=== PATIENT | female | born 1940 | race Caucasian/White ===

== ENCOUNTER 2016-12-02 19:26 | Observation (INO) | payer MEDICARE, BC ==
[2016-12-02 20:14] LABS: Hematocrit 34 % (35-47); Hemoglobin 11.4 g/dl (12.0-16.0); Mean Corpuscular HGB Conc 34 g/dl (31-36); Mean Corpuscular Hemoglobin 32 pg (27-31); Mean Corpuscular Volume 92 fL (80-97); Mean Platelet Volume 8 um3 (7.4-10.4); Red Blood Count 3.62 10^6/ul (4.0-5.4); Red Cell Distribution Width 13 % (10.5-15); White Blood Count 5.3 10^3/ul (3.5-10.8)
--- NOTE | 2016-12-02 20:27 | RAD ---
Indication: Chest pain. Single frontal view of the chest performed at 2010 hours was reviewed. No prior study is available for comparison.. No mediastinal shift is noted. Heart is of normal size and configuration. Lung ordonez appear clear. IMPRESSION: NO ACTIVE CARDIOPULMONARY DISEASE IS NOTED.
[2016-12-02 20:29] LABS: Albumin 4.1 g/dL (3.2-5.2); BUN/Creatinine Ratio 16.2 (8-20); Calcium 9.4 mg/dL (8.6-10.3); EGFR African American 108.5 (>60); EGFR Non-African American 84.4 (>60); Globulin 2.9 g/dL (2-4); Total Bilirubin 1.3 mg/dL (0.2-1.0)
[2016-12-02 20:32] LABS: Troponin I 0.01 ng/mL (<0.04)
[2016-12-02] MEDS ORDERED: Iohexol 350* (CONTRAST) 500 ML MDV IV ONE (21:06)
--- NOTE | 2016-12-02 22:30 | RAD ---
Indication: Chest pain. CTA of the chest was performed after IV contrast administration. Administered 66.0 ml of OMNIPAQUE 350 mgi/ml. Coronal and sagittal reconstructed images were obtained. The pulmonary arterial tree is well opacified. No filling defects are noted to suggest pulmonary embolus. Interstitial edema consistent with vascular congestion is noted. No alveolar consolidation is noted. The lung ordonez demonstrate no evidence of alveolar consolidation. No pneumothorax is noted. No pleural fluid is identified. No mediastinal or hilar adenopathy is noted. Cardiomegaly without evidence of pericardial effusion is present. The bony structures are unremarkable. IMPRESSION: No evidence of pulmonary embolus is noted. Prominent interstitial markings with no pericardial effusion is noted. There is cardiomegaly noted. The possibility of CHF should BE considered.
[2016-12-03] MEDS ORDERED: Heparin VIAL(*) 5000 UNITS/ML VIAL (FIVE THOUSAND) SUBCUT SCH (06:00)
[2016-12-03] MEDS ORDERED: Levothyroxine TAB* 75 MCG TAB PO SCH (06:00)
[2016-12-03 06:31] LABS: HDL Cholesterol 52.9 mg/dL
--- NOTE | 2016-12-03 08:28 | HP ---
HISTORY AND PHYSICAL: DATE OF ADMISSION: 12/03/16 CHIEF COMPLAINT: Abdominal pain/chest pain. HISTORY OF PRESENT ILLNESS: The patient is a 76-year-old woman who said that she started feeling pain into her left breast. It seemed to throb. Then it would subside and it came back. She tried to relax, but it did not go away. It came on without exertion. It did not radiate anywhere. At its worse it was 5/10 in severity. It came and went all day and she finally came to the ER. She can barely feel it now. She had no nausea or vomiting. No shortness of breath , no palpitations, no clamminess, no sweating. PAST MEDICAL HISTORY: She has a past medical history significant for hypothyroidism, hypertension, hyperlipidemia, three C-sections, varicose vein stripping, and hernia repair. ALLERGIES: She has no known drug allergies. CURRENT MEDICATIONS: Are as follows: 1. Metoprolol succinate 50 mg at bedtime. 2. Valsartan 60 mg daily. 3. Levothyroxine 75 mcg daily. 4. Lipitor 10 mg at bedtime. 5. Aspirin 81 mg daily. FAMILY HISTORY: Mother at 90 of heart problems. Father at 74 of unknown cause. SOCIAL HISTORY: No tobacco, no alcohol, no recreational drug use. She is retired. She is . Her son, Frandy Mckenzie, is her healthcare proxy and her son, Sebas Mckenzie, is also her healthcare proxy. She has three sons. REVIEW OF SYSTEMS: A 14-point review of systems is completed with the patient. All pertinent positives and negatives are in the history of present illness, otherwise it is negative. PHYSICAL EXAMINATION GENERAL: A pleasant woman lying in bed, in no acute distress. VITAL SIGNS: Blood pressure 121/80, pulse ox 95%, heart rate [60] beats per minute, respiratory rate [75] breaths per minute, temperature 98.1 degrees. HEENT: Normocephalic and atraumatic. Pupils are equal, round and reactive to light. Moist mucous membranes. NECK: Supple. No JVD, bruits, palpable thyroid or lymphadenopathy. CHEST: Clear to auscultation and percussion bilaterally. CARDIOVASCULAR: S1, S2 appreciated. Regular rate and rhythm. ABDOMEN: Positive bowel sounds in all 4 quadrants. Soft, nontender, and nondistended. EXTREMITIES: No cyanosis, clubbing, or edema. +2 peripheral pulses bilaterally. NEUROLOGIC: Alert and oriented x3. Moves all extremities. SKIN: No rashes or abnormalities. LABORATORY DATA: White count 5.3, hemoglobin 10.4, hematocrit 34, platelets 207. Sodium 133, potassium 4.0, chloride 100, CO2 26, BUN 11, creatinine 0.68, glucose 123. BNP 283. INR 0.99. CTA of the chest shows no evidence of pulmonary embolism noted, prominent interstitial markings with no pericardial effusion noted. There is cardiomegaly noted, possibly CHF should be considered. Chest x-ray was interpreted by Radiology as no acute cardiopulmonary disease as noted. EKG shows normal sinus rhythm at 74 beats per minute. Normal axis. No acute ST -T wave changes. ASSESSMENT AND PLAN: 1. Chest pain. I think it is unlikely cardiac, but certainly should be ruled out and get a stress in the a.m. If negative, I think she can safely go home and follow up with her PCP. We will also check a lipid profile. We will cycle her troponins obviously before that. She will be placed on telemetry. 2. Hypertension. Borderline, controlled. Continue current measurement and adjust medications accordingly. 4. Hypothyroidism. Stable. Continue Synthroid. 5. Hyperlipidemia. Check lipid profile. Continue Lipitor. 6. FEN. N.p.o. after midnight. 7. DVT prophylaxis. Heparin subcu. 8. The patient is a full code. TIME SPENT: Over 80 minutes were spent on this H and P, more than 45 minutes of which were spent in direct [id number]-lyci contact with the patient and evaluation, physical exam, counseling, and coordination of care. CC: Hung Terry MD.* [id number]/[facility] #: [id number] SILVANO
[2016-12-03] MEDS ORDERED: Regadenoson* 0.4 MG/5 ML SYRINGE ONE (08:37)
[2016-12-03] MEDS ORDERED: Aspirin Low Dose CHEW TAB* 81 MG PO SCH (09:00)
[2016-12-03] MEDS ORDERED: Valsartan TAB* 160 MG PO SCH (09:00)
--- NOTE | 2016-12-03 11:18 | RAD ---
Edited for charges. INDICATION: Chest pain. COMPARISON: There are no prior studies available for comparison. Technique: A single day myocardial perfusion stress study was performed. Initially the resting study was performed. The patient was given an intravenous injection of 10.1 mCi of technetium 99m tetrofosmin and and the heart was imaged in multiple projections. The patient returned later in the day and under the direction of Dr. Roth, the patient was given intervenous injection of Lexiscan. Subsequently the patient was given intravenous injection of 25.5 mCi of technetium 99m tetrofosmin and the heart was imaged in multiple projections. Images were reconstructed in the axial, sagittal and coronal planes and in a 3- D format. FINDINGS: There appears to be normal wall motion and myocardial thickening. The left ventricular ejection fraction was calculated to be 77%. Review of the images demonstrates a small area of decreased activity in the anterior wall towards the base of the heart on the post pharmacologic stress images which appears normal on the resting set of images suggestive of a small area of ischemia. There is otherwise normal distribution of radiopharmacutical. IMPRESSION: FINDINGS SUGGESTIVE OF A SMALL AREA OF ISCHEMIA IN THE ANTERIOR WALL. ASSESSMENT: Low risk Based on imaging criteria from ACC/AHA 2002 Guideline Update for the Management of Patients With Chronic Stable Angina Table 23. Noninvasive Risk Stratification. MTDD
[2016-12-03 11:21] VITALS: BP 157/95
--- NOTE | 2016-12-03 12:20 | DCNOTE ---
Patient feels well. States she had pain all day yesterday until coming to the floor and none since then. None during stress test. On exam, RRR, s1 and s2 present, no m/g/r, lungs clear B/L, abd soft, NTND, BS+ no LE edema Stress test low risk. Will plan to discharge home today with no medication changes.
[2016-12-03] MEDS ORDERED: Metoprolol Succinate XL TAB* 50 MG PO SCH (21:00)
[2016-12-03] MEDS ORDERED: Atorvastatin* 10 MG TAB PO SCH (21:00)
--- NOTE | 2016-12-04 | DS ---
CC: Dr. Terry; Roberta Garcia MD DISCHARGE SUMMARY: DATE OF ADMISSION: 12/03/16 DATE OF DISCHARGE: 12/03/16 PRIMARY CARE PHYSICIAN: Dr. Terry. PRINCIPAL DISCHARGE DIAGNOSIS: Chest pain. SECONDARY DIAGNOSES: 1. Hypertension. 2. Hypothyroidism. 3. Hyperlipidemia. STUDIES DONE DURING HOSPITALIZATION: 1. Chest x-ray, impression: No active cardiopulmonary disease is noted. 2. CTA of the chest, impression: No evidence of pulmonary embolism is noted. Prominent interstitia l markings with no pericardial effusion is noted. There is cardiomegaly noted. The possibility of CHF should be considered. 3. Nuclear cardiac stress test, impression: Findings suggestive of a small area of ischemia in the anterior wall. Assessment: Low risk. DISCHARGE MEDICATION REGIMEN: 1. Atorvastatin 10 mg by mouth at bedtime. 2. Synthroid 75 mcg by mouth daily. 3. Valsartan 160 mg by mouth daily. 4. Metoprolol succinate 50 mg by mouth at bedtime. 5. Aspirin 81 mg by mouth daily. HISTORY OF PRESENT ILLNESS AND HOSPITAL SUMMARY: Please see the full history and physical dictated by Dr. Esdras Medina for full details. Briefly, Ms. Mckenzie is a 76-year-old female with a past medi palomo history as above who presented to the hospital with some upper abdominal, midsternal chest pain that was also present in the left breast. Pain was present for most of the day yesterday until she finally decided to come to the emergency room. She states that shortly after coming to the hospital prior to getting up to her floor, the pain resolved and has not come back since. The patient under went a stress test earlier this morning with results as above. She had no chest pain noted at all d uring the stress test. Her troponins remained negative and no events on telemetry. It was felt raghu t despite the mild abnormality of the patient's nuclear stress test, it was unlikely that this was c ardiac in nature. If she had been having ongoing chest pain that was cardiac for the majority of day yesterday, I would have expected to see an elevation of her troponin or some recurrence of the chest pain during the stress test. The patient will be discharged home with no change in her home medications. She will follow up with her PCP and with Dr. Garcia as an outpatient. TIME SPENT: Total time spent on this discharge, 35 minutes. This is a summary of the hospitalizati on. Please see the full medical record for further details. [id number]/[facility] #: [id number]
--- NOTE | 2016-12-04 06:50 | ED ---
Yluisa Conrad Janilya, scribed for Minh Monson MD on 12/02/16 at 2018 . HPI Chest Pain - HPI Summary HPI Summary: A 76 y/o female came in to [facility] presenting w/ intermittent CP starting today at 0900. Severity is rated 5/10. Character of pain is described as dull pressure and it does not radiate. Deep breaths aggravate the pain and rest alleviates the pain. Pt denies SOB, abd pain, dysuria, hematuira, edema in legs , rash, nausea, and recent trauma to area. - History of Current Complaint Chief Complaint: EDChestWallPain Time Seen by Provider: 12/02/16 19:48 Hx Obtained From: Patient Onset/Duration: Started Hours Ago, Still Present Timing: Intermittent, Lasting Hours Initial Severity: Moderate Current Severity: Moderate Pain Intensity: 5 Pain Scale Used: 0-10 Numeric Chest Pain Location: Diffuse Chest Pain Radiates: No Character: Dull/Aching, Pressure/Squeezing Aggravating Factor(s): Deep Breaths Alleviating Factor(s): Rest Associated Signs and Symptoms: Positive: Chest Pain. Negative: Shortness of Breath, Nausea, Calf Pain/Swelling, Edema - Allergy/Home Medications Allergies/Adverse Reactions: Allergies Allergy/AdvReac Type Severity Reaction Status Date / Time Cephalexin [From Keflex] Allergy Swelling Verified 12/02/16 20:24 Of Face,Lips,& Throat PMH/Surg Hx/FS Hx/Imm Hx Cardiovascular History: Reports: Other Cardiovascular Problems/Disorders - high cholesterol levels - Cancer History Hx Chemotherapy: No Hx Radiation Therapy: No - Surgical History Surgery Procedure, Year, and Place: , vein strip Infectious Disease History: No Infectious Disease History: Denies: Traveled Outside the [place] in Last 30 Days - Family History Known Family History: Positive: Cardiac Disease - mother - Social History Hx Substance Use: No Hx Tobacco Use: No Review of Systems Positive: Chest Pain Negative: Shortness Of Breath Negative: Abdominal Pain, Nausea Negative: dysuria, hematuria Negative: Edema Negative: Rash, Bruising - pt denies any recent trauma to area All Other Systems Reviewed And Are Negative: Yes Physical Exam - Summary Physical Exam Summary: GENERAL EXAM GENERAL: Awake, alert, oriented, no acute distress, very pleasant HEENT: Head is normocephalipolc, atraumatic, anicteric sclera, clear conjunctiva , mucous membranes moist, no erythema, no discharge, no lesions, neck is supple , trachea is midline, no JVD CARDIAC: Regular rate and rhythm, S1, S2, no rub, no murmur, no gallop, 2+ radial and pedal pulses bilaterally RESPIRATORY: Clear to auscultation bilaterally with no rales, rhonchi, or wheezes, non-tender ABDOMEN: Bowel sounds positive, no bruit, soft, non-tender, no CVA tenderness EXTREMITIES: No edema, warm, dry, moving all extremities in a grossly normal manner NEUROLOGICAL: Mood is appropriate, moving all extremities in a grossly normal manner Triage Information Reviewed: Yes Vital Signs On Initial Exam: Initial Vitals Temp Pulse Resp BP Pulse Ox 98.1 F 76 18 145/83 99 12/02/16 19:35 12/02/16 19:35 12/02/16 19:35 12/02/16 19:35 12/02/16 19:35 Vital Signs Reviewed: Yes Diagnostics - Vital Signs Vital Signs Temp Pulse Resp BP Pulse Ox 12/02/16 19:35 98.1 F 76 18 145/83 99 - Laboratory Result Diagrams: 12/02/16 20:00 12/02/16 20:00 Lab Statement: Any lab studies that have been ordered have been reviewed, and results considered in the medical decision making process. - Radiology CXR Xray Interpretation: No Acute Changes Radiology Interpretation Completed By: Radiologist - IMPRESSION: No active cardiopulmonary disease is noted. - CT Chest CTA CT Interpretation: No Acute Changes CT Interpretation Completed By: Radiologist - IMPRESSION: No evidence of pulmonary embolus is noted. Prominent interstitial markings with no pericardial effusion is noted. There is cardiomegaly noted. The possibility of CHF should BE considered. Chest Pain Course/Dx - Diagnoses Provider Diagnoses: Chest pain - Provider Notifications Discussed Care Of Patient With: Dr. Medina (hospitalist) at 2315: agreed to admit pt. Discharge - Discharge Plan Condition: Stable Disposition: ADMITTED TO [facility] Referrals: Hung Terry MD [Primary Care Provider] - The documentation as recorded by the Yulisa holcomb Janilya accurately reflects the service I personally performed and the decisions made by , Minh Monson MD.
== END 2016-12-03 14:17 | disposition home or self-care (01) ==
LOC: ED 19:26 → MEDTELE 12-03 03:02
PROVIDERS: ADMIT Internal Medicine; ATTEND Hospitalist
DX: R07.9 Chest pain, unspecified (principal); I10 Essential (primary) hypertension; E03.9 Hypothyroidism, unspecified; E78.5 Hyperlipidemia, unspecified; Z79.899 Other long term (current) drug therapy; Z79.82 Long term (current) use of aspirin; Z88.1 Allergy status to other antibiotic agents; I51.7 Cardiomegaly
CPT/HCPCS: 36415; 71010; 71275; 78452; 80053; 80061; 82550; 82553; 83605; 83874; 83880; 84484; 85025; 85610; 85730; 93005; 93017; 96372; 99285; A9270-GY; A9502; G0378; J1644; J2785; Q9967

== ENCOUNTER → 2018-11-09 10:13 | Day surgery (SDC) | payer MEDICARE, BC ==
[~2018-11-09 10:13] MED LIST: Buffered Lidocaine 0.9% SYRIN* 5 ML/SYR SYRINGE INTRADERM ONE; Lactated Ringers 1000 ML Bag* 1,000 ML IV SCH; Lidocaine 2% PF * 5 ML VIAL ONE; Morphine VIAL* 10 MG/ML 1 ML VIAL ONE; Naloxone* 0.4 MG/ML 1 ML VIAL IV PRN; Propofol* 10 MG/ML 20 ML BTL ONE
[2018-11-09 14:16] VITALS: BP 145/85
--- NOTE | 2018-11-09 23:23 | PRO ---
CC: Dr. Hung Terry; Dr. Babar Armando* EGD AND COLONOSCOPY REPORT: DATE OF PROCEDURE: 11/09/18 PRIMARY CARE PHYSICIAN: Dr. Hung Terry. INDICATION FOR PROCEDURE: Iron deficiency anemia. PROCEDURE PERFORMED: Complete colonoscopy to the terminal ileum with biopsy polypectomy and esophagogastroduodenoscopy with biopsies. MEDICATIONS GIVEN: Please see Anesthesia record. DESCRIPTION OF PROCEDURE: After the EGD and colonoscopy procedures including the risks, benefits, and alternatives of the risks, not limited to perforation, surgery, missed lesions and/or were explained to the patient, written informed consent was obtained. IV medication was given by the anesthesia service and a bite block was placed between the teeth. The adult Olympus gastroscope was inserted into the patient's oropharynx into the tubular esophagus. At the distal esophagus, she had LA-C erosive esophagitis with an ulceration. This area was quite friable and did have a scant amount of bleeding upon contact with the scope. The scope was then advanced through the lower esophageal sphincter into the stomach. She had linear erosions along the body of the stomach. I did take biopsies and biopsy for CLOtesting as well. On retroflexion, the views were grossly normal. The scope was then advanced through the widely patent pylorus into the duodenal bulb into the C-loop and distal duodenum. These were normal in appearance, but given her anemia, these were biopsied to rule out celiac disease. The scope was then returned to the esophagus. The area in question had ceased bleeding at this point. The ulceration was re-looked at and was 0.5 cm in size at the GE junction. The GE junction was at 40 cm. The scope was then removed from the patient. She tolerated the procedure well. She was given additional IV medicine by the anesthesia service and rotated. A rectal exam was then performed. The rectal exam was unremarkable. The adult Olympus colonoscope was inserted into the patient's rectum and advanced very very carefully through the entirety of the colon into the cecal base. The cecal base was normal in appearance. The terminal ileal valve was identified and then intubated x4 to 5 cm and normal. Over the next 10 minutes, the scope was carefully withdrawn inspecting the mucosa. She had severe diverticulosis coli throughout the colon with a grade of concentration on the left, but did have vazquez-diverticulosis in nature. In addition, a small sigmoid colon polyp of 0.4 cm removed with biopsy polypectomy in entirety and returned to the rectum. Direct views were normal. On retroflexion, grade 1 internal hemorrhoids were appreciated. The scope was then withdrawn from the patient. She tolerated the procedure well. She returned to the recovery room in stable condition. IMPRESSION: 1. Complete esophagogastroduodenoscopy with biopsies. 2. LA-C erosive esophagitis with ulcer. 3. Gastritis. 4. Normal-appearing duodenum, biopsy for celiac. 5. Sigmoid colon polyp, diminutive; removed with biopsy polypectomy. 6. Severe diverticulosis coli, left greater than right side. 7. Grade 1 internal hemorrhoids. RECOMMENDATIONS: At this time, I suspect that her upper GI symptomatology may be enough to explain her anemia. There was some scant old dried blood in the stomach as well. This is likely from the LA-C erosive esophagitis with ulceration. I want to place her on b.i.d. proton pump inhibitor therapy for 3 months' time to heal this up. At that time, I would like to repeat an upper endoscopy along with iron studies and blood counts at that time to see if we are making progress. If there is still a question of iron deficiency at that point, we will recommend capsule endoscopy. In terms of her colon polyp, I will follow up on the results of this pathology. Would recommend repeat colonoscopy in 5 years and again a repeat EGD in 3 months' time after being on b.i.d. proton pump inhibitor therapy to evaluate for healing of the esophagitis. [id number]/[facility] #: [id number] SILVANO
== END | disposition home or self-care (01) ==
LOC: OR 10:13
PROVIDERS: ATTEND Internal Medicine Gastroenterology
DX: D50.9 Iron deficiency anemia, unspecified (principal); D12.5 Benign neoplasm of sigmoid colon; K29.50 Unspecified chronic gastritis without bleeding; I08.0 Rheumatic disorders of both mitral and aortic valves; I71.2 Thoracic aortic aneurysm, without rupture; E87.1 Hypo-osmolality and hyponatremia; I10 Essential (primary) hypertension; E03.9 Hypothyroidism, unspecified
CPT/HCPCS: 88305; 88342; J2270; J2704

== ENCOUNTER → 2019-03-02 07:26 | Day surgery (SDC) | payer MEDICARE, BC ==
[~2019-03-02 07:26] MED LIST changes: -Buffered Lidocaine 0.9% SYRIN* 5 ML/SYR SYRINGE INTRADERM ONE; +Buffered Lidocaine 1% SYRIN* 1 ML/SYRINGE INTRADERM ONE; +Famotidine IV* 10 MG/ML 2 ML (20 mg) IV ONE; +Famotidine IV* 10 MG/ML 2 ML (20 mg) ONE; +Midazolam* 1 MG/ML 5 ML VIAL (5 MG) ONE; -Morphine VIAL* 10 MG/ML 1 ML VIAL ONE; +Ondansetron INJ* 2 MG/ML VIAL ONE; +fentaNYL* 50 MCG/ML 2 ML VIAL (100 MCG VIAL) ONE
[2019-03-02 10:09] VITALS: BP 149/89
--- NOTE | 2019-03-03 00:22 | PRO ---
CC: Dr. Babar Armando; Dr. Hung Terry * ESOPHAGOGASTRODUODENOSCOPY REPORT: DATE OF PROCEDURE: 03/02/19 - [facility] PRIMARY CARE PHYSICIAN: Dr. Hung Terry. INDICATION FOR PROCEDURE: Erosive esophagitis. PROCEDURE PERFORMED: Complete esophagogastroduodenoscopy with biopsies. MEDICATIONS GIVEN: Please see anesthesia record. DESCRIPTION OF PROCEDURE: After the EGD procedure including the risks, benefits , and alternatives, with the risks not limited to perforation, surgery, missed lesions, and/or were explained to the patient, written informed consent was obtained. IV medication was given and a bite block was placed between the teeth. The adult Olympus gastroscope was then inserted into the patient's oropharynx, into the tubular esophagus. 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 The previous extensive erosive esophagitis had healed nicely. The scope was advanced through lower esophageal sphincter. On retroflexion, a 2 cm hiatal hernia was appreciated. The scope was then moved to the antrum and body of the stomach, which was with just mild antral gastritis. The scope was then advanced through the widely patent pylorus into the duodenal bulb, C-loop, and distal duodenum; these were normal in appearance. The scope was then removed from the patient. She tolerated the procedure well. She returned to the recovery room in stable condition. IMPRESSION: 1. Complete esophagogastroduodenoscopy with biopsies. 2. Healed erosive esophagitis. 3. 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 4. 2 cm sliding hiatal hernia. 5. Mild gastritis. RECOMMENDATIONS: Repeat EGD in 3 years' time. In addition, her blood counts had stayed relatively stagnant after the previous upper and lower endoscopy; however, she had only been on PPI therapy for a brief period of time. The thought was maybe the erosive esophagitis had contributed to some of her anemia. She has a followup appointment and blood work with Dr. Armando in March 2019. If she has ongoing anemia, we will consider doing a capsule endoscopy at that time. If her blood counts are further improving, then we would recommend holding. We will touch base with Dr. Armando at that point and consider capsule endoscopy pending blood work. She should continue 20 mg of p.o. omeprazole for her Ambriz's and will plan repeat EGD in 3 years. [id number]/[facility] #: [id number] MTDD
== END | disposition home or self-care (01) ==
LOC: OR 07:26
PROVIDERS: ATTEND Internal Medicine Gastroenterology
DX: K22.70 Barrett's esophagus without dysplasia (principal); K44.9 Diaphragmatic hernia without obstruction or gangrene; K29.70 Gastritis, unspecified, without bleeding
CPT/HCPCS: 88305; J2250; J2405; J2704; J3010

== ENCOUNTER 2019-12-25 17:04 | Emergency (ER) | payer MEDICARE, BC ==
--- NOTE | 2019-12-25 19:24 | ED ---
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 She woke up Jack morning 12/21/2019 with a bleed originating from her left leg which has since resolved. Patient denies fever, pain, or SOB. SHx of varicose vein surgery and laser surgery on left leg. No SocHx of smoking or alcohol. The patient rates the pain 0/10 in severity. Symptoms aggravated by nothing. Symptoms alleviated by nothing. - History of Current Complaint Chief Complaint: EDExtremityLower Stated Complaint: VASCULAR ISSUE PER PT Time Seen by Provider: 12/25/19 19:03 Hx Obtained From: Patient Onset/Duration: Still Present - the vascular problems are ongoing but the bleeding has resolved Pain Intensity: 0 Pain Scale Used: 0-10 Numeric Aggravating Factor(s): Nothing Alleviating Factor(s): Nothing - Allergies/Home Medications Allergies/Adverse Reactions: Allergies Allergy/AdvReac Type Severity Reaction Status Date / Time fentanyl Allergy Unknown Verified 12/25/19 19:31 Reaction Details latex Allergy Rash And Verified 12/25/19 19:31 Itching lisinopril Allergy Unknown Verified 12/25/19 19:31 Reaction Details midazolam [From Versed] Allergy Unknown Verified 12/25/19 19:31 Reaction Details MS Cephalexin [From Keflex] Allergy Swelling Verified 12/25/19 19:31 Of Face,Lips,& Throat PMH/Surg Hx/FS Hx/Imm Hx Endocrine/Hematology History: Reports: Hx Thyroid Disease - Hypo, Hx Anemia - HAVING EGD AND COLONSCOPY Denies: Hx Diabetes Cardiovascular History: Reports: Hx Angina, Hx Hypercholesterolemia, Hx Hypertension, Other Cardiovascular Problems/Disorders - high cholesterol levels Denies: Hx Coronary Artery Disease, Hx Myocardial Infarction, Hx Valvular Heart Disease Respiratory History: Denies: Hx Asthma Sensory History: Reports: Hx Contacts or Glasses - GLASSES Denies: Hx Hearing Aid Opthamlomology History: Reports: Hx Contacts or Glasses - GLASSES - Cancer History Hx Chemotherapy: No Hx Radiation Therapy: No - Surgical History Surgery Procedure, Year, and Place: , vein strip Hx Anesthesia Reactions: No - Immunization History Immunizations Up to Date: Yes Infectious Disease History: No Infectious Disease History: Denies: Traveled Outside the [place] in Last 30 Days - Family History Known Family History: Positive: Cardiac Disease - mother - Social History Alcohol Use: Rare Hx Substance Use: No Substance Use Type: Reports: None Hx Tobacco Use: No Smoking Status (MU): Never Smoked Tobacco Have You Smoked in the Last Year: No Review of Systems Constitutional: Negative - negative - pain Negative: Fever Cardiovascular: Other - vascular problems Negative: Shortness Of Breath Positive: Other - bleeding from left leg on 12/21/2019 that has since resolved All Other Systems Reviewed And Are Negative: Yes Physical Exam - Summary Physical Exam Summary: VITAL SIGNS: Reviewed. GENERAL: Patient is a well-developed and nourished female who is lying comfortable in the stretcher. Patient is not in any acute respiratory distress. HEAD AND FACE: No signs of trauma. No ecchymosis, hematomas or skull depressions. No sinus tenderness. EYES: PERRLA, EOMI x 2, No injected conjunctiva, no nystagmus. EARS: Hearing grossly intact. Ear canals and tympanic membranes are within normal limits. MOUTH: Oropharynx within normal limits. NECK: Supple, trachea is midline, no adenopathy, no JVD, no carotid bruit, no c- spine tenderness, neck with full ROM. CHEST: Symmetric, no tenderness at palpation. LUNGS: Clear to auscultation bilaterally. No wheezing or crackles. CVS: Regular rate and rhythm, S1 and S2 present, no murmurs or gallops appreciated. ABDOMEN: Soft, non-tender. No signs of distention. No rebound, no guarding, and no masses palpated. Bowel sounds are normal. EXTREMITIES: left calf erythema, induration of the skin but no tenderness, Mary 's sign negative NEURO: Alert and oriented x 3. No acute neurological deficits. Speech is normal and follows commands. SKIN: Dry and warm. Triage Information Reviewed: Yes Vital Signs On Initial Exam: Initial Vitals Temp Pulse Resp BP Pulse Ox 97.1 F 84 18 152/99 96 12/25/19 17:08 12/25/19 17:08 12/25/19 17:08 12/25/19 17:08 12/25/19 17:08 Vital Signs Reviewed: Yes Procedures - Sedation Patient Received Moderate/Deep Sedation with Procedure: No Diagnostics - Vital Signs Vital Signs Temp Pulse Resp BP Pulse Ox 12/25/19 18:27 97.3 F 65 18 132/90 100 12/25/19 17:08 97.1 F 84 18 152/99 96 - Laboratory Result Diagrams: 12/25/19 19:26 12/25/19 19:26 Lab Statement: Any lab studies that have been ordered have been reviewed, and results considered in the medical decision making process. - Ultrasound Venous Doppler Study Ultrasound Interpretation Completed By: Radiologist Summary of Ultrasound Findings: IMPRESSION: 1. No evidence of deep venous thrombosis. 2. Nonocclusive thrombus in a superficial tortuous vein. has reviewed this report. 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 She woke up Tuesday morning 12/21/2019 with a bleed originating from her left leg which has since resolved. Patient denies fever, pain, or SOB. SHx of varicose vein surgery and laser surgery on left leg. No SocHx of smoking or alcohol. The patient rates the pain 0/10 in severity. Symptoms aggravated by nothing. Symptoms alleviated by nothing. Left lower extremity ultrasound impression: No evidence of DVT. Blood work without any significant abnormality except for sodium level of 130, chloride 97, glucose 111, BUN/Creatinine Ratio 23, RBC 3.27, Hgb, 10.9, Hct 31, MCH 33, and MPV 6.9. Therefore there is no evidence for infection. PE findings : left calf erythema, induration of the skin but no tenderness, Mary's sign negative. The patient will be discharged home with follow-up with and Dr. Terry. Patient is hemodynamically stable alert oriented 3. - Diagnoses Provider Diagnoses: Calf pain Discharge ED - Sign-Out/Discharge Documenting (check all that apply): Patient Departure - discharge - Discharge Plan Condition: Stable Disposition: HOME Patient Education Materials: Musculoskeletal Pain (ED) Referrals: Hung Terry MD [Primary Care Provider] - Additional Instructions: FOLLOW UP WITH YOUR PRIMARY CARE PROVIDER WITHIN ONE WEEK. RETURN TO THE ED FOR ANY WORSENING OR NEW SYMPTOMS. - Billing Disposition and Condition Condition: STABLE Disposition: Home - Attestation Statements Document Initiated by Scribe: Yes Documenting Scribe: Jim White Provider For Whom Scribe is Documenting (Include Credential): Dr.Walter Cong MD Scribe Attestation: Jim Conrad, scribed for Dr.Walter Cong MD on 12/26/19 at 0259. Scribe Documentation Reviewed: Yes Provider Attestation: The documentation as recorded by the scribe, Jim White accurately reflects the service I personally performed and the decisions made by me, Dr.Walter oCng MD Status of Scribe Document: Viewed
[2019-12-25 19:33] LABS: ABS Basophils 0.1 10^3/ul (0-0.2); ABS Eosinophils 0.2 10^3/ul (0-0.6); ABS Lymphocytes 1.4 10^3/ul (1.0-4.8); ABS Monocytes 0.5 10^3/ul (0-0.8); ABS Neutrophils 3.6 10^3/ul (1.5-7.7); Eosinophil % 2.9 %; Hematocrit 31 % (35-47); Hemoglobin 10.9 g/dL (12.0-16.0); Lymphocyte % 23.7 %; Mean Corpuscular HGB Conc 35 g/dL (31-36); Mean Corpuscular Hemoglobin 33 pg (27-31); Mean Corpuscular Volume 96 fL (80-97); Mean Platelet Volume 6.9 fL (7.4-10.4); Nucleated Red Blood Cells % 0.1; Platelet Count 285 10^3/uL (150-450); Red Blood Count 3.27 10^6 /uL (3.70-4.87); Red Cell Distribution Width 12 % (10-15); White Blood Count 5.7 10^3/uL (3.5-10.8)
[2019-12-25 19:51] LABS: Albumin 4.2 g/dL (3.2-5.2); Albumin/Globulin Ratio 1.3 (1-3); C Reactive Protein 1.3 mg/L (<8.01); Calcium 9.2 mg/dL (8.6-10.3); EGFR African American 91.8 (>60); EGFR Non-African American 75.9 (>60); Globulin 3.2 g/dL (2-4); Potassium 4.5 mmol/L (3.5-5.0); Total Bilirubin 0.9 mg/dL (0.2-1.0); Total Protein 7.4 g/dL (6.4-8.9)
[2019-12-25 21:15] VITALS: BP 145/87
== END 2019-12-25 21:14 | disposition home or self-care (01) ==
LOC: ED 17:04
DX: M79.662 Pain in left lower leg (principal); E03.9 Hypothyroidism, unspecified; D64.9 Anemia, unspecified; E78.00 Pure hypercholesterolemia, unspecified; I10 Essential (primary) hypertension; Z88.5 Allergy status to narcotic agent; Z88.8 Allergy status to other drugs, medicaments and biological substances; Z88.1 Allergy status to other antibiotic agents; Z91.040 Latex allergy status
CPT/HCPCS: 36415; 80053; 85025; 86140; 99282